=== PATIENT | female | born 1955 | race Caucasian/White ===

== ENCOUNTER 2024-08-13 18:26 | Inpatient (IN) | payer MEDICARE, MEDICAID ==
[~2024-08-13] VITALS: Ht 157.5 cm; Wt 61.7 kg
[~2024-08-13 18:26] MED LIST: FAMO20TA8 MT; LACO200T2 MT; LEVE1000 MT; METF-415 MT; P20 MT; PHEN200C5 MT
[2024-08-13] MEDS: IPRATROPIUM BROMIDE (0.02%) 0.5MG/2.5ML NEB HHN ONE (19:59)
[2024-08-13 20:00] VITALS: PULSE 92; RESP 16; O2SAT 100
[2024-08-13] MEDS: ALBUTEROL (0.083%) 2.5MG/3ML NEB HHN ONE ×2 (20:00→23:36)
[2024-08-13] MEDS: METHYLPREDNISOLONE SOD SUCC 125MG/2ML (ACT-O-VIAL) IV ONE (20:02)
[2024-08-13 21:06] LABS: INFLUENZA TYPE A Presumptive Negative (Pres. Neg.)
[2024-08-13 21:07] LABS: INFLUENZA TYPE B Presumptive Negative (Pres. Neg.)
[2024-08-13] MEDS ORDERED: FENTANYL 2500MCG/250ML PMX 250 ML IV ONE (21:15)
[2024-08-13] MEDS: PROPOFOL 10MG/ML 100ML 100 ML IV SCH (21:33)
[2024-08-13 21:37] LABS: HEMATOCRIT. 36.8 % (36.0-48.0); HEMOGLOBIN. 11.9 g/dL (12.0-16.0); MEAN CORPUSCULAR HEMOGLOBIN 26.3 pg (28.0-32.0); MEAN CORPUSCULAR HGB CONC 32.3 g/dL (31.0-37.0); MEAN CORPUSCULAR VOLUME 81.5 fL (81.0-99.0); MEAN PLATELET VOLUME 7.4 fl (7.4-10.4); PLATELET 451 x1000/uL (130-400); RED BLOOD CELL COUNT 4.52 mill/uL (4.2-5.4); RED CELL DISTRIBUTION WIDTH 17.8 % (11.6-14.6); WHITE BLOOD COUNT 9.8 x1000/uL (4.5-11.0)
[2024-08-13 21:38] LABS: DIFFERENTIAL COMMENT 1
[2024-08-13 21:46] LABS: CHLORIDE 80 mEq/L (98-107); POTASSIUM 4.7 mEq/L (3.5-5.1); SODIUM 126 mEq/L (136-145)
[2024-08-13 21:47] LABS: CALCIUM 8.9 mg/dL (8.7-10.4); CARBON DIOXIDE 37 mEq/L (21-32)
[2024-08-13 21:52] LABS: CREATININE 0.4 mg/dL (0.6-1.0); GLUCOSE 165 mg/dL (70-105); UREA NITROGEN BLOOD 8 mg/dL (9-23)
[2024-08-13 21:54] LABS: TROPONIN I HIGH SENSITIVITY 18 ng/L (3.0-34)
[2024-08-13] MEDS: FENTANYL 2500MCG/250ML PMX 250 ML IV PRN (21:58)
[2024-08-13 22:00] VITALS: RESP 22
[2024-08-13 22:25] LABS: PLATELET ESTIMATE INCREASED
[2024-08-13 23:22] LABS: BG BASE EXCESS 7.1 mmol/L (-2.0-3.0); BG CARBOXYHEMOGLOBIN 1.9 % (0.5-1.5); BG DEOXYHEMOGLOBIN 0.3 % (0.0-5.0); BG FRACTION INSPIRED OXYGEN 80; BG HCO3 ACT 37.3 mmol/L (21.0-28.0); BG METHEMOGLOBIN 0.1 % (0.5-1.5); BG OXYGEN SATURATION 99.7 % (94.0-98.0); BG OXYHEMOGLOBIN 97.7 % (94.0-98.0); BG PCO2 86.7 mmHg (32.0-45.0); BG PH 7.251 (7.350-7.450); BG PO2 420.9 mmHg (83.0-108.0); BG SAMPLE SITE RIGHT RADIAL; BG TOTAL HEMOGLOBIN 12.5 g/dL (12.0-16.0); BG VENT MODE VENT - AC
[2024-08-13] MEDS ORDERED: MAGNESIUM HYDROXIDE 400MG/5ML 30ML UDC PO PRN (23:30)
[2024-08-13] MEDS ORDERED: ACETAMINOPHEN 325MG TABLET PO PRN (23:30)
[2024-08-13 23:36] VITALS: PULSE 81; RESP 28; O2SAT 100
[2024-08-13] MEDS ORDERED: VANCOMYCIN 1GM/200ML PMX (BAXTER) IV NR (23:45)
[2024-08-13] MEDS ORDERED: SODIUM CHLORIDE 0.9% 500 ML IV ONE (23:50)
[2024-08-14] VITALS (78 sets, daily range): BP systolic 99–162; BP diastolic 53–87; PULSE 71–99; RESP 11–28; TEMP 37–37.3; O2SAT 93–100
[2024-08-14] MEDS: VANCOMYCIN 1G PREMIX 200 ML IV SCH (00:07)
[2024-08-14] MEDS: SODIUM CHLORIDE 0.9% 1,000 ML IV ONE (00:07)
[2024-08-14] MEDS: LEVETIRACETAM 500MG PREMIX 100 ML IV ONE (00:07)
[2024-08-14] MEDS: PHENYTOIN SODIUM 100MG/2ML VIAL IV ONE (00:07)
[2024-08-14] MEDS: MAGNESIUM 2 G PREMIX 50 ML IV NR ×2 (00:08→04:16)
[2024-08-14] MEDS ORDERED: CLONIDINE 0.1MG TABLET PO PRN (00:15)
[2024-08-14] MEDS ORDERED: IPRATROPIUM/ALBUTEROL 0.5-3(2.5)MG/3ML NEB HHN PRN (00:15)
[2024-08-14] MEDS ORDERED: MIDAZOLAM 100MG/100ML PMX 100 ML IV PRN (00:15)
[2024-08-14] MEDS ORDERED: ONDANSETRON HCL 4MG/2ML INJ IV PRN (00:15)
[2024-08-14] MEDS ORDERED: HYDROCODONE/ACETAMINOPHEN 5/325MG TABLET PO PRN (00:15)
[2024-08-14] MEDS ORDERED: MAGNESIUM/ALUMINUM HYDROXIDE/SIMETHICONE 30ML UDC PO PRN (00:15)
[2024-08-14] MEDS ORDERED: HYDROCODONE/ACETAMINOPHEN 7.5/325MG TABLET PO PRN (00:15)
[2024-08-14] MEDS ORDERED: NA PHOS,M-B/NA PHOS,DI-BA ENEMA 118ML PR PRN (00:15)
[2024-08-14] MEDS ORDERED: ACETAMINOPHEN 325MG TABLET PO PRN (00:15)
[2024-08-14] MEDS ORDERED: DOCUSATE SODIUM 100MG CAPSULE PO PRN (00:15)
[2024-08-14] MEDS ORDERED: GUAIFENESIN 200MG/10ML SUGAR FREE UDC PO PRN (00:15)
[2024-08-14] MEDS ORDERED: MAGNESIUM 4 G PREMIX 100 ML IV NR (00:15)
[2024-08-14 01:07] LABS: PHOSPHORUS 3.7 mg/dL (2.5-4.9)
[2024-08-14] MEDS: SODIUM CHLORIDE 0.9% 500 ML IV ONE (01:13)
[2024-08-14] MEDS: LACOSAMIDE 100MG/10ML ORAL SOLN NG SCH (01:46)
[2024-08-14] MEDS: MIDAZOLAM 100MG/100ML PMX 100 ML IV PRN (01:47)
[2024-08-14] MEDS: DEXT 5%/0.9% NACL 1,000 ML IV SCH (02:23)
[2024-08-14] MEDS ORDERED: DEXTROSE 50% WATER 50ML SYRINGE IV PRN (03:30)
[2024-08-14] MEDS: PANTOPRAZOLE SODIUM 40 MG/VIAL IV SCH (03:30)
[2024-08-14] MEDS ORDERED: INSULIN LISPRO 100 UNITS/ML SUBCUT SCH (03:30)
[2024-08-14] MEDS ORDERED: SODIUM CHLORIDE 3% FOR INH 15ML NEB INH NR (04:00)
[2024-08-14 06:27] LABS: BASOPHILS % 0.4 % (0.0-2.0); DIFFERENTIAL COMMENT 0; HEMATOCRIT. 30.6 % (36.0-48.0); LYMPHOCYTES % 15.5 % (20.0-50.0); MEAN CORPUSCULAR HGB CONC 32.8 g/dL (31.0-37.0); MEAN CORPUSCULAR VOLUME 79.4 fL (81.0-99.0); MEAN PLATELET VOLUME 7.6 fl (7.4-10.4); MONOCYTES % 8.7 % (2.0-8.0); NEUTROPHILS % 75.4 % (40.0-76.0); PLATELET 391 x1000/uL (130-400); RED BLOOD CELL COUNT 3.85 mill/uL (4.2-5.4); RED CELL DISTRIBUTION WIDTH 17.8 % (11.6-14.6)
[2024-08-14 06:28] LABS: CLARITY URINE CLEAR (CLEAR); COLOR URINE YELLOW (YELLOW); GLUCOSE URINE NEGATIVE (NEGATIVE); KETONES URINE NEGATIVE (NEGATIVE); LEUKOCYTE ESTERASE URINE NEGATIVE (NEGATIVE); NITRITE URINE NEGATIVE (NEGATIVE); OCCULT BLOOD URINE TRACE (NEGATIVE); PH URINE 7.5 (4.5-8.0); PROTEIN URINE 1+ (NEGATIVE); SPECIFIC GRAVITY URINE 1.017 (1.005-1.030); UROBILINOGEN URINE 0.2 E.U./dL (0.2-1.0)
[2024-08-14 06:44] LABS: *AMPHETAMINES SCREEN URINE NEGATIVE (NEGATIVE)
[2024-08-14 06:47] LABS: *BARBITURATES SCREEN URINE NEGATIVE (NEGATIVE); *BENZODIAZEPINES SCREEN URINE PRESUMPTIVE POSITIVE (NEGATIVE); *COCAINE SCREEN URINE NEGATIVE (NEGATIVE); CANNABINOID URINE SCREEN NEGATIVE (NEGATIVE); ECSTASY MDMA SCREEN URINE NEGATIVE (NEGATIVE); METHADONE URINE SCREEN NEGATIVE (NEGATIVE); OPIATES URINE SCREEN NEGATIVE (NEGATIVE); PHENCYCLIDINE URINE SCREEN NEGATIVE (NEGATIVE)
[2024-08-14 06:54] LABS: CARBON DIOXIDE 38 mEq/L (21-32); CHLORIDE 83 mEq/L (98-107); POTASSIUM 3.9 mEq/L (3.5-5.1); SODIUM 127 mEq/L (136-145)
[2024-08-14 06:55] LABS: CALCIUM 8.4 mg/dL (8.7-10.4)
[2024-08-14] MEDS: METHYLPREDNISOLONE SOD SUCC 40MG/ML (ACT-O-VIAL) IV NR (06:55)
[2024-08-14] MEDS: PIPERACILLIN/TAZO 3.375G/50ML 50 ML IV SCH (06:55)
[2024-08-14 07:00] LABS: CREATININE 0.3 mg/dL (0.6-1.0); GLUCOSE 113 mg/dL (70-105); UREA NITROGEN BLOOD 9 mg/dL (9-23)
[2024-08-14 07:06] LABS: T4 FREE 1.05 ng/dL (0.89-1.76); THYROID STIMULATING HORMONE 0.57 uIU/mL (0.55-4.78)
[2024-08-14 07:37] LABS: BACTERIA URINE TRACE; SQUAMOUS EPITHELIAL CELL URINE FEW /lpf (RARE/1+); WBC URINE 0-2 /hpf (0-2)
[2024-08-14] MEDS ORDERED: BLOOD SUGAR DIAGNOSTIC STRIP TEST SCH (07:50)
[2024-08-14 08:48] LABS: BG CARBOXYHEMOGLOBIN 1.1 % (0.5-1.5); BG FRACTION INSPIRED OXYGEN 40; BG HCO3 ACT 35.6 mmol/L (21.0-28.0); BG METHEMOGLOBIN 0.3 % (0.5-1.5); BG OXYGEN SATURATION 94.9 % (94.0-98.0); BG OXYHEMOGLOBIN 93.6 % (94.0-98.0); BG PCO2 47.6 mmHg (32.0-45.0); BG PH 7.492 (7.350-7.450); BG PO2 70.4 mmHg (83.0-108.0); BG SAMPLE SITE RIGHT RADIAL; BG TOTAL HEMOGLOBIN 10.8 g/dL (12.0-16.0); BG VENT MODE VENT - AC
[2024-08-14] MEDS ORDERED: PANTOPRAZOLE SODIUM 40 MG/VIAL IV SCH (09:00)
[2024-08-14] MEDS: FAMOTIDINE 20MG/2ML VIAL IV SCH (09:00)
[2024-08-14] MEDS ORDERED: LEVETIRACETAM 1,000MG in NACL 100ML PREMIX IV SCH (09:00)
[2024-08-14] MEDS ORDERED: ENOXAPARIN 30MG/0.3ML SYR SUBCUT SCH (09:00)
[2024-08-14 09:01] LABS: TROPONIN I HIGH SENSITIVITY 17 ng/L (3.0-34)
[2024-08-14 09:02] LABS: CREATINE KINASE 102 IU/L (34-145)
[2024-08-14] MEDS: LEVETIRACETAM 1000MG PREMIX 100 ML IV SCH (09:44)
[2024-08-14] MEDS: ENOXAPARIN 40MG/0.4ML SYR SUBCUT SCH (09:44)
[2024-08-14] MEDS: LACOSAMIDE 100MG/10ML ORAL SOLN GT SCH (09:45)
[2024-08-14] MEDS: PHENYTOIN SODIUM EXTENDED 100MG CAPSULE PO NR (09:45)
[2024-08-14] MEDS ORDERED: VANCOMYCIN 500MG PREMIX 100 ML IV SCH (10:00)
[2024-08-14] MEDS: BLOOD SUGAR DIAGNOSTIC STRIP TEST SCH (12:00)
[2024-08-14] MEDS: INSULIN LISPRO 100 UNITS/ML SUBCUT SCH (12:00)
[2024-08-14] MEDS: VANCOMYCIN 500MG PREMIX 100 ML IV SCH (12:59)
[2024-08-14] MEDS ORDERED: CEFEPIME 1GM IN DEXT 5% 50ML IV SCH (14:30)
[2024-08-14] MEDS: AZITHROMYCIN 500MG/250ML 250 ML IV SCH (15:44)
[2024-08-14] MEDS: CEFEPIME 2GM/50ML DUPLEX 50 ML IV SCH (15:45)
[2024-08-14] MEDS: SODIUM CHLORIDE 0.9% 1,000 ML IV SCH (15:47)
[2024-08-14 19:31] LABS: TROPONIN I HIGH SENSITIVITY 10 ng/L (3.0-34)
[2024-08-14 19:32] LABS: CREATINE KINASE 82 IU/L (34-145)
[2024-08-14] MEDS ORDERED: SIMV-43 MT (19:59)
[2024-08-14] MEDS ORDERED: TAMS-11 PO (19:59)
[2024-08-14] MEDS ORDERED: DEXT 5%/0.9% NACL 1,000 ML IV SCH (23:45)
[2024-08-15] VITALS (85 sets, daily range): BP systolic 123–169; BP diastolic 70–112; PULSE 67–99; RESP 17–37; TEMP 36.6–37.3; O2SAT 80–100
[2024-08-15] MEDS: DEXT 5%/LACTATED RINGERS 1,000 ML IV SCH (03:00)
[2024-08-15 05:27] LABS: HEMATOCRIT 31.7 % (36.0-48.0); HEMOGLOBIN 10.5 g/dL (12.0-16.0); MEAN CORPUSCULAR HEMOGLOBIN 26.2 pg (28.0-32.0); MEAN CORPUSCULAR VOLUME 79.4 fL (81.0-99.0); PLATELET 351 x1000/uL (130-400); RED BLOOD CELL COUNT 3.99 mill/uL (4.2-5.4); RED CELL DISTRIBUTION WIDTH 18.5 % (11.6-14.6); WHITE BLOOD COUNT 7.4 x1000/uL (4.5-11.0)
[2024-08-15 05:53] LABS: CHLORIDE 88 mEq/L (98-107); POTASSIUM 3.6 mEq/L (3.5-5.1); SODIUM 130 mEq/L (136-145)
[2024-08-15 05:54] LABS: CALCIUM 8.5 mg/dL (8.7-10.4); CARBON DIOXIDE 34 mEq/L (21-32)
[2024-08-15 05:59] LABS: CREATININE 0.3 mg/dL (0.6-1.0); GLUCOSE 102 mg/dL (70-105); UREA NITROGEN BLOOD 6 mg/dL (9-23)
[2024-08-15 06:01] LABS: PHOSPHORUS 2.9 mg/dL (2.5-4.9)
[2024-08-15 07:09] LABS: PHENYTOIN < 2.0 ug/mL (10-20)
[2024-08-15] MEDS: IPRATROPIUM/ALBUTEROL 0.5-3(2.5)MG/3ML NEB HHN SCH (08:23)
[2024-08-15] MEDS: PANTOPRAZOLE SODIUM 40 MG/VIAL IV SCH (08:46)
[2024-08-15] MEDS: MAGNESIUM 2 G PREMIX 50 ML IV NR (08:46)
[2024-08-15] MEDS: PHENYTOIN SODIUM 100MG/2ML VIAL IV SCH (09:50)
[2024-08-15 10:07] LABS: BG BASE EXCESS 9.6 mmol/L (-2.0-3.0); BG CARBOXYHEMOGLOBIN 0.8 % (0.5-1.5); BG DEOXYHEMOGLOBIN 5.4 % (0.0-5.0); BG FRACTION INSPIRED OXYGEN 40; BG OXYGEN SATURATION 94.6 % (94.0-98.0); BG OXYHEMOGLOBIN 93.8 % (94.0-98.0); BG PCO2 58.4 mmHg (32.0-45.0); BG PH 7.408 (7.350-7.450); BG PO2 75.1 mmHg (83.0-108.0); BG SAMPLE SITE RIGHT RADIAL; BG TOTAL HEMOGLOBIN 11.2 g/dL (12.0-16.0); BG VENT MODE VENT - AC
[2024-08-15 10:22] LABS: CREATININE URINE RANDOM 54.1 mg/dL
[2024-08-15 13:50] LABS: BG BASE EXCESS 10.4 mmol/L (-2.0-3.0); BG CARBOXYHEMOGLOBIN 1.1 % (0.5-1.5); BG DEOXYHEMOGLOBIN 10.9 % (0.0-5.0); BG FRACTION INSPIRED OXYGEN 40; BG HCO3 ACT 38.3 mmol/L (21.0-28.0); BG PH 7.362 (7.350-7.450); BG PO2 60.7 mmHg (83.0-108.0); BG SAMPLE SITE RIGHT BRACHIAL; BG TOTAL HEMOGLOBIN 12.2 g/dL (12.0-16.0); BG TOTAL RESPIRATORY RATE 30 b/min; BG VENT MODE VENT - CPAP
[2024-08-15] MEDS: ACETAMINOPHEN 325MG TABLET PO PRN (20:47)
[2024-08-15] MEDS ORDERED: VANCOMYCIN 750MG/150ML (BAXTER) IV SCH (21:00)
[2024-08-16] VITALS (19 sets, daily range): BP systolic 110–153; BP diastolic 68–91; PULSE 72–95; RESP 20–31; TEMP 36.7–37.1; O2SAT 88–96
[2024-08-16 06:38] LABS: CARBON DIOXIDE 36 mEq/L (21-32); CHLORIDE 89 mEq/L (98-107); POTASSIUM 3.7 mEq/L (3.5-5.1); SODIUM 131 mEq/L (136-145)
[2024-08-16 06:39] LABS: CALCIUM 8.7 mg/dL (8.7-10.4)
[2024-08-16 06:44] LABS: CREATININE 0.3 mg/dL (0.6-1.0); GLUCOSE 112 mg/dL (70-105)
[2024-08-16 06:46] LABS: PHOSPHORUS 3.4 mg/dL (2.5-4.9)
[2024-08-16 06:48] LABS: UREA NITROGEN BLOOD < 5 mg/dL (9-23)
[2024-08-16] MEDS: MAGNESIUM 2 G PREMIX 50 ML IV NR (08:48)
[2024-08-16] MEDS ORDERED: CEFEPIME 2GM/50ML DUPLEX 50 ML IV SCH (18:00)
[2024-08-17] VITALS (11 sets, daily range): BP systolic 119–135; BP diastolic 54–78; PULSE 78–90; RESP 18–25; TEMP 36.4–36.7; O2SAT 96–99
[2024-08-17 07:13] LABS: BASOPHILS % 0.8 % (0.0-2.0); DIFFERENTIAL COMMENT 0; EOSINOPHILS % 1.8 % (0.0-5.0); HEMATOCRIT. 35.5 % (36.0-48.0); HEMOGLOBIN. 11.2 g/dL (12.0-16.0); LYMPHOCYTES % 10.6 % (20.0-50.0); MEAN CORPUSCULAR HGB CONC 31.5 g/dL (31.0-37.0); MEAN CORPUSCULAR VOLUME 79.2 fL (81.0-99.0); MEAN PLATELET VOLUME 7.2 fl (7.4-10.4); MONOCYTES % 10.4 % (2.0-8.0); NEUTROPHILS % 76.4 % (40.0-76.0); PLATELET 338 x1000/uL (130-400); RED BLOOD CELL COUNT 4.48 mill/uL (4.2-5.4); RED CELL DISTRIBUTION WIDTH 18.1 % (11.6-14.6); WHITE BLOOD COUNT 8.3 x1000/uL (4.5-11.0)
[2024-08-17 07:16] LABS: CHLORIDE 88 mEq/L (98-107); POTASSIUM 4.5 mEq/L (3.5-5.1); SODIUM 128 mEq/L (136-145)
[2024-08-17 07:17] LABS: CALCIUM 8.8 mg/dL (8.7-10.4); CARBON DIOXIDE 36 mEq/L (21-32)
[2024-08-17 07:22] LABS: CREATININE 0.3 mg/dL (0.6-1.0); GLUCOSE 101 mg/dL (70-105); UREA NITROGEN BLOOD 8 mg/dL (9-23)
[2024-08-17 07:23] LABS: AMMONIA < 17 uMol/L (<32)
[2024-08-17 07:24] LABS: PHOSPHORUS 3.7 mg/dL (2.5-4.9)
[2024-08-17] MEDS: MAGNESIUM 4 G PREMIX 100 ML IV NR (10:24)
[2024-08-17] MEDS ORDERED: LACO200T4 PO (16:57)
[2024-08-17] MEDS ORDERED: PHEN200C5 MT (16:57)
[2024-08-17] MEDS ORDERED: LEVE1000 PO (16:57)
== END 2024-08-18 00:02 | disposition home health service (06) | DRG 100 ==
LOC: ER 18:26 → EDBEDREQ 20:23 → EDBEDREQSVC 21:13 → CVICU 23:35 → EDBEDREQ 23:37 → EDBEDREQTM 23:37 → 7WST 08-17 01:50
PROVIDERS: ADMIT Internal Medicine; ATTEND Internal Medicine
PROC: 0BH17EZ Insertion of Endotracheal Airway into Trachea, Via Natural or Artificial Opening (ICD-10-PCS; principal; 2024-08-13)
PROC: 5A1945Z Respiratory Ventilation, 24-96 Consecutive Hours (ICD-10-PCS; 2024-08-13)
PROC: 4A00X4Z Measurement of Central Nervous Electrical Activity, External Approach (ICD-10-PCS; 2024-08-15)
DX: G40.909 Epilepsy, unspecified, not intractable, without status epilepticus (principal); G92.8 Other toxic encephalopathy; J96.02 Acute respiratory failure with hypercapnia; J44.1 Chronic obstructive pulmonary disease with (acute) exacerbation; E87.1 Hypo-osmolality and hyponatremia; I50.32 Chronic diastolic (congestive) heart failure; I27.20 Pulmonary hypertension, unspecified; Z20.822 Contact with and (suspected) exposure to COVID-19; E83.42 Hypomagnesemia; E11.9 Type 2 diabetes mellitus without complications; I11.0 Hypertensive heart disease with heart failure; F17.200 Nicotine dependence, unspecified, uncomplicated; Z79.84 Long term (current) use of oral hypoglycemic drugs; Z79.899 Other long term (current) drug therapy; Z99.81 Dependence on supplemental oxygen; Z91.148 Patient's other noncompliance with medication regimen for other reason
CPT/HCPCS: 36415; 36600; 71045; 80048; 80185; 80202; 80305; 80339; 81003; 82140; 82375; 82436; 82542; 82550; 82570; 82805; 82962; 83036; 83605; 83735; 83880; 83930; 83935; 84100; 84145; 84300; 84439; 84443; 84484; 85025; 85027; 87070; 87077; 87186; 87420; 87426; 87804; 93005; 93970; 94002; 94003; 94070; 94640; 94664; 95816; 97116; 97162; 97165; 99291; A4606; J0456; J0692; J1165; J1650; J1815; J1953; J2250; J2470; J2543; J2704; J2919; J2920; J3010; J3370; J3475; J3490; J7030; J7121

== ENCOUNTER 2025-06-03 23:22 | Inpatient (IN) | payer MEDICARE, MEDICAID ==
[~2025-06-03] VITALS: Ht 165.1 cm; Wt 71.2 kg
[~2025-06-03 23:22] MED LIST changes: +ATOR10TA PO; -FAMO20TA8 MT; +GABA-1180 PO; +LACO100T2 PO; -LACO200T2 MT; -LEVE1000 MT; +LEVE100023 MT; +PHEN100C4 PO; -PHEN200C5 MT; +ROFL250T3 PO; +SIMV-46 PO; +TAMS-54 PO
[2025-06-03] MEDS: METHYLPREDNISOLONE SOD SUCC 125MG/2ML (ACT-O-VIAL) IV ONE (23:31)
[2025-06-03 23:35] VITALS: RESP 30
[2025-06-03] MEDS: IPRATROPIUM BROMIDE (0.02%) 0.5MG/2.5ML NEB HHN ONE (23:35)
[2025-06-03] MEDS: ALBUTEROL (0.083%) 2.5MG/3ML NEB HHN ONE (23:35)
[2025-06-03 23:47] LABS: BASOPHILS % 0.7 % (0.0-2.0); EOSINOPHILS % 1.0 % (0.0-5.0); HEMATOCRIT. 34.4 % (36.0-48.0); HEMOGLOBIN. 10.4 g/dL (12.0-16.0); LYMPHOCYTES % 11.1 % (20.0-50.0); MEAN PLATELET VOLUME 7.4 fl (7.4-10.4); MONOCYTES % 9.3 % (2.0-8.0); NEUTROPHILS % 77.9 % (40.0-76.0); PLATELET 374 x1000/uL (130-400); RED BLOOD CELL COUNT 4.28 mill/uL (4.2-5.4); RED CELL DISTRIBUTION WIDTH 16.0 % (11.6-14.6)
[2025-06-03 23:52] LABS: BG BASE EXCESS 16.2 mmol/L (-2.0-3.0); BG CARBOXYHEMOGLOBIN 1.0 % (0.5-1.5); BG DEOXYHEMOGLOBIN 0.3 % (0.0-5.0); BG FRACTION INSPIRED OXYGEN 100; BG HCO3 ACT 48.2 mmol/L (21.0-28.0); BG METHEMOGLOBIN 0.3 % (0.5-1.5); BG OXYGEN SATURATION 99.7 % (94.0-98.0); BG OXYHEMOGLOBIN 98.4 % (94.0-98.0); BG PCO2 121.1 mmHg (32.0-45.0); BG PH 7.218 (7.350-7.450); BG PO2 289.6 mmHg (83.0-108.0); BG SAMPLE SITE RIGHT RADIAL; BG TOTAL HEMOGLOBIN 11.0 g/dL (12.0-16.0); BG VENT MODE MASK - BIPAP; BG VENT RATE 18.0 set
[2025-06-04] VITALS (18 sets, daily range): BP systolic 116–138; BP diastolic 62–107; PULSE 90–112; RESP 17–32; TEMP 36.2–36.7; O2SAT 50–99
[2025-06-04 00:01] LABS: INR 1.0; TROPONIN I HIGH SENSITIVITY < 4 ng/L (3.0-34)
[2025-06-04 02:08] LABS: CREATININE 0.4 mg/dL (0.6-1.0); UREA NITROGEN BLOOD 11 mg/dL (9-23)
[2025-06-04 02:09] LABS: ETHANOL BLOOD < 10 mg/dL (<10); PROTEIN TOTAL 7.3 g/dL (6.0-8.3)
[2025-06-04 02:10] LABS: ASPARTATE AMINOTRANSFERASE 16 IU/L (<34); BILIRUBIN DIRECT < 0.1 mg/dL (<=3.0); BILIRUBIN TOTAL 0.2 mg/dL (0.1-1.0)
[2025-06-04 02:14] LABS: INFLUENZA TYPE A Presumptive Negative (Pres. Neg.); INFLUENZA TYPE B Presumptive Negative (Pres. Neg.)
[2025-06-04 02:15] LABS: RESPIRATORY SYNCYTIAL VIRUS Not Detected (Not Detectd)
[2025-06-04 02:36] LABS: BG BASE EXCESS 14.6 mmol/L (-2.0-3.0); BG CARBOXYHEMOGLOBIN 1.4 % (0.5-1.5); BG DEOXYHEMOGLOBIN 3.3 % (0.0-5.0); BG FRACTION INSPIRED OXYGEN 50; BG HCO3 ACT 45.2 mmol/L (21.0-28.0); BG METHEMOGLOBIN 0.1 % (0.5-1.5); BG OXYGEN SATURATION 96.6 % (94.0-98.0); BG OXYHEMOGLOBIN 95.2 % (94.0-98.0); BG PCO2 102.0 mmHg (32.0-45.0); BG PH 7.264 (7.350-7.450); BG PO2 92.8 mmHg (83.0-108.0); BG SAMPLE SITE LEFT BRACHIAL; BG TIDAL VOLUME(mL) 297.0 mL; BG TOTAL HEMOGLOBIN 10.7 g/dL (12.0-16.0); BG VENT MODE MASK - BIPAP; BG VENT RATE 20.0 set
[2025-06-04] MEDS ORDERED: IPRATROPIUM/ALBUTEROL 0.5-3(2.5)MG/3ML NEB HHN PRN (04:00)
[2025-06-04] MEDS ORDERED: LORAZEPAM 0.5MG TABLET PO PRN (04:00)
[2025-06-04] MEDS ORDERED: DOCUSATE SODIUM 100MG CAPSULE PO PRN (04:00)
[2025-06-04] MEDS ORDERED: ACETAMINOPHEN 325MG TABLET PO PRN ×2 (04:00)
[2025-06-04] MEDS ORDERED: CLONIDINE 0.1MG TABLET PO PRN (04:00)
[2025-06-04] MEDS ORDERED: GUAIFENESIN 200MG/10ML SUGAR FREE UDC PO PRN (04:00)
[2025-06-04] MEDS ORDERED: ONDANSETRON HCL 4MG/2ML INJ IV PRN (04:00)
[2025-06-04] MEDS ORDERED: DEXTROSE 50% WATER 50ML SYRINGE IV PRN (04:00)
[2025-06-04] MEDS ORDERED: PIPERACILLIN/TAZO 3.375G/50ML 50 ML IV SCH (06:00)
[2025-06-04] MEDS: METHYLPREDNISOLONE SOD SUCC 40MG/ML (ACT-O-VIAL) IV SCH (06:20)
[2025-06-04] MEDS: CEFTRIAXONE 2GM/50ML 50 ML IV SCH (06:21)
[2025-06-04 06:27] LABS: BG BASE EXCESS 12.0 mmol/L (-2.0-3.0); BG CARBOXYHEMOGLOBIN 1.6 % (0.5-1.5); BG DEOXYHEMOGLOBIN 2.7 % (0.0-5.0); BG FRACTION INSPIRED OXYGEN 50; BG HCO3 ACT 41.2 mmol/L (21.0-28.0); BG METHEMOGLOBIN 0.2 % (0.5-1.5); BG OXYGEN SATURATION 97.3 % (94.0-98.0); BG OXYHEMOGLOBIN 95.5 % (94.0-98.0); BG PCO2 86.0 mmHg (32.0-45.0); BG PH 7.298 (7.350-7.450); BG PO2 92.7 mmHg (83.0-108.0); BG SAMPLE SITE RIGHT RADIAL; BG TOTAL HEMOGLOBIN 10.4 g/dL (12.0-16.0); BG VENT MODE MASK - BIPAP; BG VENT RATE 20.0 set
[2025-06-04] MEDS: BLOOD SUGAR DIAGNOSTIC STRIP TEST SCH (07:30)
[2025-06-04] MEDS: INSULIN LISPRO 100 UNITS/ML SUBCUT SCH (08:00)
[2025-06-04] MEDS: PHENYTOIN SODIUM EXTENDED 100MG CAPSULE PO SCH (09:02)
[2025-06-04] MEDS: AZITHROMYCIN 500MG/250ML 250 ML IV SCH (09:02)
[2025-06-04] MEDS: LEVETIRACETAM 500MG TABLET PO SCH (09:02)
[2025-06-04 09:42] LABS: TRIGLYCERIDE 94.0 mg/dL (0-150)
[2025-06-04 09:43] LABS: LDL CHOLESTEROL 90.0 mg/dL (5-100)
[2025-06-04 09:47] LABS: T4 FREE 0.83 ng/dL (0.89-1.76)
[2025-06-04 12:11] LABS: CLARITY URINE CLEAR (CLEAR); COLOR URINE YELLOW (YELLOW); GLUCOSE URINE NEGATIVE (NEGATIVE); KETONES URINE NEGATIVE (NEGATIVE); LEUKOCYTE ESTERASE URINE NEGATIVE (NEGATIVE); NITRITE URINE NEGATIVE (NEGATIVE); OCCULT BLOOD URINE NEGATIVE (NEGATIVE); PH URINE 6.0 (4.5-8.0); PROTEIN URINE 2+ (NEGATIVE); SPECIFIC GRAVITY URINE 1.023 (1.005-1.030); UROBILINOGEN URINE 0.2 E.U./dL (0.2-1.0)
[2025-06-04 12:25] LABS: *AMPHETAMINES SCREEN URINE NEGATIVE (NEGATIVE)
[2025-06-04 12:26] LABS: *BARBITURATES SCREEN URINE NEGATIVE (NEGATIVE)
[2025-06-04 12:27] LABS: *BENZODIAZEPINES SCREEN URINE NEGATIVE (NEGATIVE); *COCAINE SCREEN URINE NEGATIVE (NEGATIVE); CANNABINOID URINE SCREEN NEGATIVE (NEGATIVE); ECSTASY MDMA SCREEN URINE NEGATIVE (NEGATIVE); METHADONE URINE SCREEN NEGATIVE (NEGATIVE); OPIATES URINE SCREEN NEGATIVE (NEGATIVE); PHENCYCLIDINE URINE SCREEN NEGATIVE (NEGATIVE); SQUAMOUS EPITHELIAL CELL URINE 2+ /lpf (RARE/1+)
[2025-06-04 12:28] LABS: WBC URINE 0-2 /hpf (0-2)
[2025-06-04 12:30] LABS: FINE GRANULAR CASTS URINE 0-5 /lpf
[2025-06-04 12:31] LABS: HYALINE CASTS URINE 0-5 /lpf
[2025-06-04 12:32] LABS: MUCUS URINE 1+ /lpf (< = 2+)
[2025-06-04 12:33] LABS: BACTERIA URINE NONE SEEN; RBC URINE NONE SEEN /hpf (0-2)
[2025-06-04] MEDS: IPRATROPIUM/ALBUTEROL 0.5-3(2.5)MG/3ML NEB HHN SCH (16:32)
[2025-06-05] VITALS (24 sets, daily range): BP systolic 112–147; BP diastolic 56–120; PULSE 89–112; RESP 18–35; TEMP 36.2–37.1; O2SAT 87–100
[2025-06-05 06:45] LABS: BASOPHILS % 0.5 % (0.0-2.0); EOSINOPHILS % 1.5 % (0.0-5.0); HEMATOCRIT. 29.6 % (36.0-48.0); HEMOGLOBIN. 9.5 g/dL (12.0-16.0); LYMPHOCYTES % 13.1 % (20.0-50.0); MEAN PLATELET VOLUME 7.5 fl (7.4-10.4); MONOCYTES % 11.5 % (2.0-8.0); NEUTROPHILS % 73.4 % (40.0-76.0); PLATELET 392 x1000/uL (130-400); RED BLOOD CELL COUNT 3.76 mill/uL (4.2-5.4); RED CELL DISTRIBUTION WIDTH 16.3 % (11.6-14.6)
[2025-06-05 07:07] LABS: CREATININE 0.4 mg/dL (0.6-1.0)
[2025-06-05 07:08] LABS: UREA NITROGEN BLOOD 8 mg/dL (9-23)
[2025-06-05 11:10] LABS: BG BASE EXCESS 14.7 mmol/L (-2.0-3.0); BG CARBOXYHEMOGLOBIN 1.0 % (0.5-1.5); BG DEOXYHEMOGLOBIN 6.1 % (0.0-5.0); BG FLOW(L/min) 30.00 L/min; BG FRACTION INSPIRED OXYGEN 60; BG HCO3 ACT 43.0 mmol/L (21.0-28.0); BG METHEMOGLOBIN 0.0 % (0.5-1.5); BG OXYGEN SATURATION 93.8 % (94.0-98.0); BG OXYHEMOGLOBIN 92.9 % (94.0-98.0); BG PCO2 79.0 mmHg (32.0-45.0); BG PH 7.354 (7.350-7.450); BG PO2 71.4 mmHg (83.0-108.0); BG SAMPLE SITE LEFT RADIAL; BG TOTAL HEMOGLOBIN 10.5 g/dL (12.0-16.0); BG VENT MODE HIGH FLOW
[2025-06-05] MEDS ORDERED: LORAZEPAM 2MG/ML UD SYRINGE IV NR (11:15)
[2025-06-05] MEDS ORDERED: LORAZEPAM 2MG/ML UD SYRINGE IV PRN (11:30)
[2025-06-05] MEDS: LEVETIRACETAM 1000MG PREMIX 100 ML IV NR (11:30)
[2025-06-05] MEDS: ENOXAPARIN 40MG/0.4ML SYR SUBCUT SCH (14:54)
[2025-06-05] MEDS: LORAZEPAM 2MG/ML UD SYRINGE IV NR (14:55)
[2025-06-05] MEDS: FERROUS SULFATE 325MG TABLET PO SCH (17:59)
[2025-06-05] MEDS ORDERED: SODIUM CHLORIDE 10% FOR INH 15ML NEB INH SCH (18:00)
[2025-06-05] MEDS: LEVETIRACETAM 500MG TABLET PO SCH (20:51)
[2025-06-05] MEDS ORDERED: LEVETIRACETAM 500MG TABLET PO SCH (21:00)
[2025-06-05] MEDS: LEVETIRACETAM 1000MG PREMIX 100 ML IV SCH (21:54)
[2025-06-05] MEDS: ACETYLCYSTEINE 200MG/ML 20% VIAL 4ML INH SCH (22:13)
[2025-06-06] VITALS (14 sets, daily range): BP systolic 111–150; BP diastolic 60–93; PULSE 86–112; RESP 11–30; TEMP 36.4–37.1; O2SAT 94–100
[2025-06-06] MEDS: ASCORBIC ACID 250 MG TABLET PO SCH (08:42)
[2025-06-06] MEDS: FUROSEMIDE 20MG/2ML VIAL IVP SCH (08:42)
[2025-06-06] MEDS: DOXYCYCLINE 100MG/100ML 100 ML IV SCH (08:43)
[2025-06-06 10:56] LABS: BG BASE EXCESS 22.4 mmol/L (-2.0-3.0); BG CARBOXYHEMOGLOBIN 0.5 % (0.5-1.5); BG DEOXYHEMOGLOBIN 0.0 % (0.0-5.0); BG FLOW(L/min) 40.00 L/min; BG FRACTION INSPIRED OXYGEN 100; BG HCO3 ACT 52.5 mmol/L (21.0-28.0); BG METHEMOGLOBIN 0.1 % (0.5-1.5); BG OXYGEN SATURATION 100.0 % (94.0-98.0); BG OXYHEMOGLOBIN 99.4 % (94.0-98.0); BG PCO2 97.2 mmHg (32.0-45.0); BG PH 7.350 (7.350-7.450); BG PO2 240.2 mmHg (83.0-108.0); BG SAMPLE SITE RIGHT BRACHIAL; BG TOTAL HEMOGLOBIN 11.1 g/dL (12.0-16.0); BG VENT MODE HIGH FLOW
[2025-06-06] MEDS: METHYLPREDNISOLONE SOD SUCC 40MG/ML (ACT-O-VIAL) IV SCH (13:47)
[2025-06-06 17:48] LABS: HEMATOCRIT. 30.1 % (36.0-48.0); HEMOGLOBIN. 9.3 g/dL (12.0-16.0); MEAN PLATELET VOLUME 7.4 fl (7.4-10.4); PLATELET 429 x1000/uL (130-400); RED BLOOD CELL COUNT 3.85 mill/uL (4.2-5.4); RED CELL DISTRIBUTION WIDTH 16.2 % (11.6-14.6)
[2025-06-06 17:59] LABS: CREATININE 0.6 mg/dL (0.6-1.0); UREA NITROGEN BLOOD 11 mg/dL (9-23)
[2025-06-06 20:17] LABS: LYMPHOCYTES % MANUAL 4.0 % (20.0-60.0); MONOCYTES % MANUAL 4.0 % (2.0-8.0); NEUTROPHILS % MANUAL 92.0 % (45.0-75.0); PLATELET ESTIMATE NORMAL
[2025-06-07] VITALS (18 sets, daily range): BP systolic 105–139; BP diastolic 62–90; PULSE 85–102; RESP 15–31; TEMP 36.5–36.7; O2SAT 93–100
[2025-06-08] VITALS (16 sets, daily range): BP systolic 107–132; BP diastolic 62–102; PULSE 88–101; RESP 19–27; TEMP 36.1–36.7; O2SAT 86–97
[2025-06-08] MEDS: METHYLPREDNISOLONE SOD SUCC 40MG/ML (ACT-O-VIAL) IV SCH (09:50)
[2025-06-08 11:15] LABS: BG BASE EXCESS 13.3 mmol/L (-2.0-3.0); BG CARBOXYHEMOGLOBIN 2.0 % (0.5-1.5); BG DEOXYHEMOGLOBIN 7.8 % (0.0-5.0); BG FLOW(L/min) 40.00 L/min; BG FRACTION INSPIRED OXYGEN 50; BG HCO3 ACT 42.2 mmol/L (21.0-28.0); BG METHEMOGLOBIN 0.1 % (0.5-1.5); BG OXYGEN SATURATION 92.0 % (94.0-98.0); BG OXYHEMOGLOBIN 90.1 % (94.0-98.0); BG PCO2 80.6 mmHg (32.0-45.0); BG PH 7.337 (7.350-7.450); BG PO2 67.9 mmHg (83.0-108.0); BG SAMPLE SITE RIGHT RADIAL; BG TOTAL HEMOGLOBIN 11.7 g/dL (12.0-16.0); BG VENT MODE HIGH FLOW
[2025-06-09] VITALS (17 sets, daily range): BP systolic 108–138; BP diastolic 55–107; PULSE 84–99; RESP 20–30; TEMP 35.6–36.8; O2SAT 88–100
[2025-06-09 07:27] LABS: PLATELET 404 x1000/uL (130-400); RED BLOOD CELL COUNT 4.23 mill/uL (4.2-5.4); RED CELL DISTRIBUTION WIDTH 16.1 % (11.6-14.6)
[2025-06-09 07:34] LABS: UREA NITROGEN BLOOD 11 mg/dL (9-23)
[2025-06-09 07:53] LABS: CREATININE 0.4 mg/dL (0.6-1.0)
[2025-06-10] VITALS (17 sets, daily range): BP systolic 111–128; BP diastolic 56–105; PULSE 85–116; RESP 17–30; TEMP 36.3–37; O2SAT 90–98
[2025-06-11] VITALS (15 sets, daily range): BP systolic 113–130; BP diastolic 55–83; PULSE 87–102; RESP 18–32; TEMP 36.4–37.2; O2SAT 80–99
[2025-06-11] MEDS: PREDNISONE 10MG TABLET PO SCH (10:14)
[2025-06-12] VITALS (11 sets, daily range): BP systolic 103–128; BP diastolic 53–78; PULSE 81–96; RESP 18–29; TEMP 36.4–36.8; O2SAT 84–100
[2025-06-12] MEDS ORDERED: ASCO-494 PO (12:48)
[2025-06-12] MEDS ORDERED: FERR-63 PO (12:48)
[2025-06-12] MEDS ORDERED: PRED10TA PO (12:48)
== END 2025-06-12 18:05 | disposition home health service (06) | DRG 189 ==
LOC: ER 23:22 → EDBEDREQ 06-04 00:43 → EDBEDREQTM 06-04 00:43 → EDBEDREQDT 06-04 00:43 → ENRESERV 06-04 00:51 → 5EST 06-04 01:14
PROVIDERS: ADMIT Internal Medicine; ATTEND Internal Medicine
PROC: 5A09357 Assistance with Respiratory Ventilation, Less than 24 Consecutive Hours, Continuous Positive Airway Pressure (ICD-10-PCS; principal; 2025-06-04)
PROC: 5A09357 Assistance with Respiratory Ventilation, Less than 24 Consecutive Hours, Continuous Positive Airway Pressure (ICD-10-PCS; 2025-06-04)
PROC: 5A0935A Assistance with Respiratory Ventilation, Less than 24 Consecutive Hours, High Flow/Velocity Cannula (ICD-10-PCS; 2025-06-04)
PROC: 5A09357 Assistance with Respiratory Ventilation, Less than 24 Consecutive Hours, Continuous Positive Airway Pressure (ICD-10-PCS; 2025-06-05)
PROC: 5A0935A Assistance with Respiratory Ventilation, Less than 24 Consecutive Hours, High Flow/Velocity Cannula (ICD-10-PCS; 2025-06-05)
PROC: 5A09357 Assistance with Respiratory Ventilation, Less than 24 Consecutive Hours, Continuous Positive Airway Pressure (ICD-10-PCS; 2025-06-06)
PROC: 5A0935A Assistance with Respiratory Ventilation, Less than 24 Consecutive Hours, High Flow/Velocity Cannula (ICD-10-PCS; 2025-06-06)
PROC: 5A09357 Assistance with Respiratory Ventilation, Less than 24 Consecutive Hours, Continuous Positive Airway Pressure (ICD-10-PCS; 2025-06-07)
PROC: 5A0945A Assistance with Respiratory Ventilation, 24-96 Consecutive Hours, High Flow/Velocity Cannula (ICD-10-PCS; 2025-06-07)
PROC: 5A09357 Assistance with Respiratory Ventilation, Less than 24 Consecutive Hours, Continuous Positive Airway Pressure (ICD-10-PCS; 2025-06-08)
PROC: 5A0935A Assistance with Respiratory Ventilation, Less than 24 Consecutive Hours, High Flow/Velocity Cannula (ICD-10-PCS; 2025-06-09)
PROC: 5A0935A Assistance with Respiratory Ventilation, Less than 24 Consecutive Hours, High Flow/Velocity Cannula (ICD-10-PCS; 2025-06-10)
DX: J96.21 Acute and chronic respiratory failure with hypoxia (principal); J18.9 Pneumonia, unspecified organism; E87.29 Other acidosis; I50.22 Chronic systolic (congestive) heart failure; J44.0 Chronic obstructive pulmonary disease with (acute) lower respiratory infection; J44.1 Chronic obstructive pulmonary disease with (acute) exacerbation; I27.20 Pulmonary hypertension, unspecified; I11.0 Hypertensive heart disease with heart failure; J96.22 Acute and chronic respiratory failure with hypercapnia; G40.909 Epilepsy, unspecified, not intractable, without status epilepticus; R91.1 Solitary pulmonary nodule; E78.5 Hyperlipidemia, unspecified; F41.9 Anxiety disorder, unspecified; Z79.4 Long term (current) use of insulin; Z79.84 Long term (current) use of oral hypoglycemic drugs; Z79.899 Other long term (current) drug therapy; Z87.891 Personal history of nicotine dependence; Z91.199 Patient's noncompliance with other medical treatment and regimen due to unspecified reason
CPT/HCPCS: 36415; 36600; 71045; 80048; 80061; 80076; 80305; 80320; 80339; 81003; 82375; 82728; 82805; 82962; 83036; 83540; 83550; 83880; 84439; 84443; 84481; 84484; 85025; 85027; 87420; 87804; 93005; 93970; 94070; 94640; 94660; 94664; 94760; 96365; 99285; A4606; A4615; J0456; J0696; J1650; J1815; J1938; J1953; J2060; J2919; J3490; J7131; J7512; J7608; G0480